=== PATIENT | female | born 1975 | race Caucasian/White ===

== ENCOUNTER → 2016-12-22 | Outpatient (CLI) | payer BC ==
--- NOTE | 2016-12-22 10:11 | US ---
EXAMINATION TYPE: US abdomen complete DATE OF EXAM: 12/22/2016 9:58 AM COMPARISON: NONE CLINICAL HISTORY: R10.31 rlq pain. General rt sided pain EXAM MEASUREMENTS: Liver Length: 14.2 cm Gallbladder Wall: 0.2 cm CBD: 0.4 cm Spleen: 8.5 cm Right Kidney: 10.1 x 4.5 x 4.7cm Left Kidney: 10.0 x 5.0 x 4.2 cm TECHNOLOGIST IMPRESSION: Pancreas: wnl Liver: wnl Gallbladder: wnl Evidence for sonographic Rothman's sign: no CBD: wnl Spleen: wnl Right Kidney: wnl Left Kidney: wnl Upper IVC: wnl Abd Aorta: wnl The liver is homogenous. The intrahepatic portion of the IVC and proximal abdominal aorta are within normal limits. There is no evidence of cholelithiasis. Common bile duct is unremarkable. The visu alized portions of the pancreas are homogenous. The spleen is unremarkable. Kidneys are symmetric a nd free of hydronephrosis. No renal lesions are seen. IMPRESSION: Normal abdominal ultrasound.
--- NOTE | 2016-12-22 15:13 | US ---
EXAMINATION TYPE: US pelvic complete DATE OF EXAM: 12/22/2016 8:52 AM COMPARISON: on pacs CLINICAL HISTORY: RLQ Pain [id number]. Partial hysterectomy on 04/2015 TECHNIQUE: Transabdominal (TA) Date of LMP: Partial hysterectomy EXAM MEASUREMENTS: Uterus: Surgically absent Endometrial Stripe: Surgically absent Right Ovary: 3.4 x 2.1 x 2.3 cm Left Ovary: 4.0 x 3.0 x 4.0 cm TECHNOLOGIST IMPRESSION: 1. Uterus: Surgically absent 2. Endometrium: Surgically absent 3. Right Ovary: wnl 4. Left Ovary: simple cyst= 3.4 x 3.5 x 3.0 cm Spectral, color and waveform doppler imaging shows good arterial and venous flow within the ovaries ; there is no evidence for ovarian torsion. 5. Bilateral Adnexa: Free fluid seen adjacent to bilateral ovaries 6. Posterior cul-de-sac: fluid seen IMPRESSION: 1. Status post partial hysterectomy. 2. Simple appearing 3 cm left ovarian cyst. 3. Small amount of free fluid.
== END | disposition home or self-care (01) ==
LOC: RADUSWWP 07:23
PROVIDERS: ATTEND Psychiatry & Neurology Neurology
DX: N83.202 Unspecified ovarian cyst, left side (principal); R10.31 Right lower quadrant pain; Z90.710 Acquired absence of both cervix and uterus
CPT/HCPCS: 76700; 76856

== ENCOUNTER → 2017-02-05 | Outpatient (CLI) | payer BC ==
[2017-02-05 09:58] LABS: CH 29.8; CHCM 32.6; HCT 38.4 % (34.0-46.0); HDW 2.36; HGB 12.8 gm/dL (11.4-16.0); MCH 30.6 pg (25.0-35.0); MCHC 33.3 g/dL (31.0-37.0); MCV 91.7 fL (80.0-100.0); RBC 4.19 m/uL (3.80-5.40); RDW 11.9 % (11.5-15.5); WBC 4.2 k/uL (3.8-10.6)
[2017-02-05 10:22] LABS: ALT 25 U/L (9-52); AST 16 U/L (14-36); Alkaline Phosphatase 45 U/L (38-126); Anion Gap 9 mmol/L; Blood Urea Nitrogen 17 mg/dL (7-17); C Reactive Protein <5.0 mg/L (<10.0); Calcium 9.8 mg/dL (8.4-10.2); Carbon Dioxide 26 mmol/L (22-30); Chloride 106 mmol/L (98-107); Creatine Kinase 61 U/L (30-135); Glucose 90 mg/dL (74-99); Magnesium 1.9 mg/dL (1.6-2.3); Non-African American GFR(MDRD) >60 (>60 ml/min/1.73 sqM); Potassium 4.8 mmol/L (3.5-5.1); Sodium 141 mmol/L (137-145); Total Bilirubin 0.5 mg/dL (0.2-1.3); Total Protein 6.7 g/dL (6.3-8.2)
[2017-02-05 11:08] LABS: Vitamin B12 486 pg/mL (239-931)
[2017-02-05 11:11] LABS: Erythrocyte Sedimentation Rate 8 mm/hr (0-20)
[2017-02-05 12:56] LABS: Hemoglobin A1C 5.3 % (4.2-6.1)
[2017-02-08 05:50] LABS: Vitamin E (Alpha Tocopherol) 960 ug/dL (500-1800)
[2017-02-08 07:40] LABS: Cyclic Citrullinated Pep IgG 8 UNITS (<20)
[2017-02-11 20:04] LABS: Nicotinamide 20 ng/mL; Nicotinic Acid None Detected; Nicotinuric Acid None Detected
[2017-02-12 22:36] LABS: Vitamin K 283 pg/mL (80-1160)
== END | disposition home or self-care (01) ==
LOC: LABWHC1 08:56
PROVIDERS: ATTEND Psychiatry & Neurology Pain Medicine
DX: G89.4 Chronic pain syndrome (principal); M79.7 Fibromyalgia; Z79.899 Other long term (current) drug therapy
CPT/HCPCS: 36415; 80053; 82306; 82550; 82607; 83036; 83519; 83735; 84207; 84425; 84446; 84590; 84591; 84597; 85027; 85652; 86140; 86200; 86235

== ENCOUNTER → 2017-05-19 | Outpatient (CLI) | payer BC | END | disposition home or self-care (01) | LOC: LABWHC1 10:34 | PROVIDERS: ATTEND Psychiatry & Neurology Neurology | DX: E55.9 Vitamin D deficiency, unspecified (principal) | CPT/HCPCS: 36415; 82306 ==

== ENCOUNTER → 2018-01-18 | Outpatient (CLI) | payer BC ==
[2018-01-18 09:21] LABS: Basophils % (A) 0 %; Eosinophils # (A) 0.1 k/uL (0-0.7); Eosinophils % (A) 2 %; HCT 38.1 % (34.0-46.0); HGB 12.4 gm/dL (11.4-16.0); Lymphocytes # (A) 1.5 k/uL (1.0-4.8); Lymphocytes % (A) 33 %; MCH 28.8 pg (25.0-35.0); MCHC 32.6 g/dL (31.0-37.0); MCV 88.3 fL (80.0-100.0); Mean Platelet Volume 7.6; Monocytes # (A) 0.3 k/uL (0-1.0); Monocytes % (A) 7 %; Neutrophils # (A) 2.6 k/uL (1.3-7.7); Neutrophils % (A) 57 %; Platelet Count 290 k/uL (150-450); RBC 4.31 m/uL (3.80-5.40); RDW 12.4 % (11.5-15.5); WBC 4.6 k/uL (3.8-10.6)
[2018-01-18 17:33] LABS: Iron Saturation 35.98 (12.00-45.00)
== END | disposition home or self-care (01) ==
LOC: LABWHC1 08:21
PROVIDERS: ATTEND Family Medicine
DX: L65.9 Nonscarring hair loss, unspecified (principal); E55.9 Vitamin D deficiency, unspecified
CPT/HCPCS: 36415; 82306; 82728; 83540; 83550; 84443; 84466; 85025

== ENCOUNTER → 2018-10-06 | Outpatient (CLI) | payer BC ==
--- NOTE | 2018-10-06 10:48 | US ---
EXAMINATION TYPE: US abdomen comp/pelvis limited DATE OF EXAM: 10/06/2018 COMPARISON: Ultrasound abdomen December 22, 2016 CLINICAL HISTORY: R10.9 Unspecified abdominal pain. R ight flank pain, dysuria EXAM MEASUREMENTS: Liver Length: 15.9 cm Gallbladder Wall: 0.2 cm CBD: 0.3 cm Spleen: 8.8 cm Right Kidney: 11.0 x 4.9 x 4.7 cm Left Kidney: 10.5 x 5.0 x 4.6 cm Pancreas: visualized portions appear wnl Liver: appears wnl Gallbladder: no evidence of stones CBD: wnl Spleen: wnl Right Kidney: no evidence of hydronephrosis Left Kidney: no evidence of hydronephrosis Upper IVC: wnl Abd Aorta: wnl Bladder: appears wnl Bilateral Jets Seen yes Bladder is poorly distended and thus suboptimally evaluated. Complete abdominal ultrasound shows no suspicious abnormality. No significant change from prior study is noted. IMPRESSION: No suspicious new or acute finding is seen to account for patient's symptoms.
== END ==
LOC: RADUSWWP 08:12
PROVIDERS: ATTEND Family Medicine
DX: R10.9 Unspecified abdominal pain (principal)
CPT/HCPCS: 76700; 76857

== ENCOUNTER 2018-10-16 08:27 | Day surgery (SDC) | payer BC ==
[2018-10-09 16:55] VITALS: BMI 22.8
[~2018-10-16 08:27] MED LIST: DEXAMETHASONE SOD PHOSPHATE 10 MG/ML 1 ML VIAL IV ONE; HYDROmorphone 0.5 MG/0.5 ML SYRINGE IVP PRN; LACTATED RINGERS 1,000 ML IV SCH; LIDOCAINE 1% 20 ML VIAL (10MG/ML) FOR IV START INTRADERMA PRN; ONDANSETRON 4 MG/2 ML VIAL IVP ONE; SCOPOLAMINE 1.5MG/72HR PATCH TRANSDERM ONE
[2018-10-16] MEDS ORDERED: MIDAZOLAM 2 MG/2 ML VIAL IVP ONE (08:50)
[2018-10-16] MEDS ORDERED: fentaNYL (PF) 50 MCG/ML 2 ML AMP IVP ONE (08:51)
[2018-10-16] MEDS ORDERED: PROPOFOL 10 MG/ML 20 ML VIAL IV ONE (08:57)
[2018-10-16] MEDS ORDERED: LIDOCAINE 1% INJ 10MG/ML (20 ML MDV) ONE (08:57)
[2018-10-16 08:59] VITALS: RESP 16; TEMP 98.6
--- NOTE | 2018-10-16 09:27 | P.PCN ---
Date of Procedure: 10/16/18 Procedure(s) Performed: Procedure: Colonoscopy and biopsy. Preoperative diagnosis: Alternating bowel habits and recent rectal bleeding. Postoperative diagnosis: 1. Prominent anal papillae and low-grade internal hemorrhoids not bleeding at the time of the exam, otherwise, exam to the terminal ileum within normal limits. 2. Biopsies obtained from the terminal ileum and right colon because of the chronic bowel issues. Preparation: HalfLytely prep. Sedation: Was provided by anesthesia. Brief clinical history: The patient is a 43-year-old female who is referred for this evaluation because of recent episode of rectal bleeding. The patient reports alternating bowel habits over the years with days of diarrhea followed by days of no bowel movements and straining to pass a small amount of stools only. She does have lower abdominal pains that could be neuropathic in origin secondary to nerve trapping following a prior surgery. No family history of colon cancer or inflammatory bowel disease. Procedure: With the patient on her left lateral decubitus position and after informed consent and adequate sedation, the perianal area was inspected and it did not show any fissures or fistulas. There was some skin redundancy and skin relaxation but no definite skin tags. No masses were felt on digital rectal examination. The Olympus CFQ 160L video colonoscope was then inserted in the rectum in the usual fashion and advanced to the cecum. I intubated the ileocecal valve and examined the terminal ileum. Terminal ileum and colon appeared healthy with no edema, erythema, friability, ulceration, exudation or spontaneous bleeding. No polyps or tumors were seen or any obvious diverticular disease. I retroflexed the endoscope in the rectum before the endoscope was withdrawn. Prominent anal papillae and low-grade internal hemorrhoids were noted with no evidence of bleeding. The patient tolerated the procedure well. Plan: The patient was reassured. Discussed dietary measures and local care for hemorrhoids. She will follow-up with you as planned and I recommended repeat colonoscopy at age 52. Further plans can be made based on her course and biopsy results. I would be happy to see in the office if her symptoms persist.
[2018-10-16 09:41] VITALS: BP 117/75; PULSE 84
--- NOTE | 2018-10-18 12:35 | CDI ---
Outpatient Documentation Clarification Form Date: 10/18/19 CDS/[employer] Name: Nyla Case Phone: If any questions, call Virginie [facility] [employer] at [phone] Patient Name: Josi Turner Admit Date: 10/16/18 Discharge Date: 10/16/18 ATTENTION: The [facility] Coding Staff appreciate your assistance in clarifying documentation. Please respond to the clarification below the line at the bottom and electronically sign. The [facility] Coding staff will review the response and follow-up if needed. Please note: Queries are made part of the Legal Health Record. If you have any questions, please contact the [employer] [facility]. Dear Dr. Rodriguez, What is the cause of the rectal bleeding? Our coding resources state that when rectal bleeding is documented along with internal and/or external hemorrhoids, the physician must be queried to determine whether the rectal bleeding is secondary to the hemorrhoids, or incidental. Thank you for your kind consideration. Since no active bleeding during procedure, I cannot determine source. I would have said it if I knew it. Do not ask question about cause on future cases. JUANYD
== END 2018-10-16 10:14 | disposition home or self-care (01) ==
LOC: ORWHC2ENDO 08:27
DX: K64.8 Other hemorrhoids (principal); K64.4 Residual hemorrhoidal skin tags; G57.10 Meralgia paresthetica, unspecified lower limb; R19.7 Diarrhea, unspecified; K59.00 Constipation, unspecified; R10.30 Lower abdominal pain, unspecified; Z79.899 Other long term (current) drug therapy
CPT/HCPCS: 88305; 45380; J2250; J2001; J3010; J2704

== ENCOUNTER → 2018-11-10 | Outpatient (CLI) | payer BC ==
--- NOTE | 2018-11-12 10:40 | MR ---
EXAMINATION TYPE: MR ankle LT wo con DATE OF EXAM: 11/10/2018 COMPARISON: None HISTORY: left ankle sprain, pain, swelling, limited movement. Fibular fracture, talar fracture, ankle sprain and ankle pain for order. She describes symptoms length of 3 weeks after tripping over a curb . TECHNIQUE: Standard multiplanar, multisequence MRI imaging was performed of the left ankle without in travenous contrast per department protocol. FINDINGS: The anterior and posterior tibiofibular ligaments appear intact. However there is a near complete tea r of the anterior talofibular ligament with surrounding lateral fluid collection measuring 2.1 x 2.9 cm. Only few inferior fibers of this ligament remain and are of abnormal high signal. There is a part ial thickness intermediate grade tear of the posterior talofibular ligament. The deltoid ligament tashia ears intact with minimally increased signal indicative of low-grade sprain. The spring ligament appea rs unremarkable. There is a focal osseous contusion of the medial aspect of the anterior talar facet with no evidence of fracture. The adjacent sinus tarsus is unremarkable. Boehler's angle is within normal limits. No f racture is identified on MRI. The extensor compartment ligaments appear intact. There is a long segment split tear of the peroneus brevis beginning just below the fibula on axial T2 fat sat image 15 and extending along segment approximately 3 cm near the insertion on the base of th e fifth metatarsal. The Achilles tendon and plantar fascia are unremarkable. The flexor compartment tendons appear intact and of unremarkable signal. There is nonspecific subcutaneous edema overall mild in degree surrounding the entirety of the ankle joint and extending into the dorsal hindfoot. There is a small uncomplicated tibiotalar joint effusion. IMPRESSION: 1. Near full-thickness tear of the anterior talofibular ligament with associated uncomplicated fluid collection extending from the tibiotalar joint injuring 2.1 x 2.9 cm overlying the anterior distal fi bular margin and extending anteriorly over the tibiotalar joint. There is associated small tibiotalar joint effusion. This also appears uncomplicated. 2. Long segment split tear of the peroneus brevis beginning just below the ankle joint and extending near the base of the fifth metatarsal. 3. Osseous contusion of the anterior and plantar aspect of the anterior talar facet. 4. Partial thickness intermediate grade tear of the posterior talofibular ligament. 5. Low-grade sprain of the glenoid ligament.
== END ==
LOC: RADMRIMAIN 13:37
PROVIDERS: ATTEND Podiatrist Primary Podiatric Medicine
DX: S93.432A Sprain of tibiofibular ligament of left ankle, initial encounter (principal); S91.012A Laceration without foreign body, left ankle, initial encounter; S90.02XA Contusion of left ankle, initial encounter; S93.492A Sprain of other ligament of left ankle, initial encounter

== ENCOUNTER → 2018-12-15 | Outpatient (CLI) | payer BC | END | disposition home or self-care (01) | LOC: LABWHC1 08:25 | PROVIDERS: ATTEND Psychiatry & Neurology Pain Medicine | DX: Z01.818 Encounter for other preprocedural examination (principal) | CPT/HCPCS: 36415; 93005 ==

== ENCOUNTER → 2019-05-11 | Outpatient (CLI) | payer BC ==
--- NOTE | 2019-05-15 10:10 | MM ---
Reason for exam: screening (asymptomatic). Last mammogram was performed 1 year and 6 months ago. History: Family history of breast cancer in grandmother. Physical Findings: A clinical breast exam by your physician is recommended on an annual basis and results should be correlated with mammographic findings. MG 3D Screening Mammo W/Cad Bilateral CC and MLO view(s) were taken. Prior study comparison: November 04, 2017, bilateral MG 3d screening mammo w/cad. The breast tissue is heterogeneously dense. This may lower the sensitivity of mammography. There is a stable oval, circumscribed, probable hematoma on the right in comparison to 2017. Benign stable left calcifications. No suspicious abnormality. No significant changes when compared with prior studies. ASSESSMENT: Benign, BI-RAD 2 RECOMMENDATION: Routine screening mammogram of both breasts in 1 year.
== END | disposition home or self-care (01) ==
LOC: RADMAMWWP 07:23
PROVIDERS: ATTEND Obstetrics & Gynecology
DX: Z12.31 Encounter for screening mammogram for malignant neoplasm of breast (principal); Z80.3 Family history of malignant neoplasm of breast
CPT/HCPCS: 77063; 77067

== ENCOUNTER → 2019-07-25 | Outpatient (CLI) | payer BC | END | disposition home or self-care (01) | LOC: LABWHC1 08:58 | PROVIDERS: ATTEND Psychiatry & Neurology Pain Medicine | DX: Z01.818 Encounter for other preprocedural examination (principal) | CPT/HCPCS: 93005 ==

== ENCOUNTER → 2020-01-31 | Outpatient (CLI) | payer BC ==
--- NOTE | 2020-01-31 13:36 | MM ---
Reason for exam: additional evaluation requested from prior study. Last mammogram was performed 9 months ago. History: Family history of breast cancer in maternal grandmother at age 65. Physical Findings: Nurse Summary: 4 xcm nodule in the right breast at 6 o'clock (nurse ts). MG 3D Diag Mammo W/Cad JOSH Bilateral CC and MLO view(s) were taken. Prior study comparison: May 11, 2019, bilateral MG 3d screening mammo w/cad. November 04, 2017, bilateral MG 3d screening mammo w/cad. The breast tissue is heterogeneously dense. This may lower the sensitivity of mammography. There is a lower outer quadrant 2.5cm mass at posterior depth that appears stable on mammogra. Fat containing hamartoma previously typed as hematoma (error). These results were verbally communicated with the patient and result sheet given to the patient on 01/31/20. ASSESSMENT: Incomplete: need additional imaging evaluation, BI-RAD 0 RECOMMENDATION: Ultrasound of the right breast. (palpable)
--- NOTE | 2020-01-31 13:39 | USB ---
Reason for exam: additional evaluation requested from abnormal screening. History: Family history of breast cancer in maternal grandmother at age 65. US Breast RT Technologist: Kerri Harris Right complete breast ultrasound includes all four quadrants, the retroareolar region and axilla. Finding demonstrates a 2.4 x 2.7 x 2.4cm lesion at 7 o'clock does not correspond to stable mammographic hamartoma from 2017, appears solid and lobular with peripheral vascular flow, biopsy recommended and a 1.1 x 0.7 x 0.5cm lesion at 7 o'clock, appears as a nonenlarged lymph node. These results were verbally communicated with the patient and result sheet given to the patient on 01/31/20. ASSESSMENT: Suspicious, BI-RAD 4 RECOMMENDATION: Ultrasound core biopsy of the right breast. Called Dr. Mccarty's office with mammographic findings and has scheduled an appointment for the patient for 03/06/20 at 10:[address] Ferreira. Biopsy scheduled for 02/29/20 at 11:30. PRELIMINARY REPORT CALLED AND FAXED TO DR. FERREIRA ON 01/31/20.
== END | disposition home or self-care (01) ==
LOC: RADMAMWWP 09:32
PROVIDERS: ATTEND Obstetrics & Gynecology
DX: N63.10 Unspecified lump in the right breast, unspecified quadrant (principal); N63.20 Unspecified lump in the left breast, unspecified quadrant; N64.4 Mastodynia
CPT/HCPCS: 77062; 77066

== ENCOUNTER → 2020-02-26 | Day surgery (SDC) | payer BC ==
[2020-02-26 10:31] VITALS: RESP 16
[2020-02-26 12:12] VITALS: BP 116/77; PULSE 73; TEMP 98.3
--- NOTE | 2020-02-27 06:37 | USB ---
EXAMINATION TYPE: US biopsy breast VAD RT, MG diagnostic mammo RT wo CAD DATE OF EXAM: 02/26/2020 CLINICAL HISTORY: Breast lump [id number]. TECHNIQUE: Ultrasound guided core biopsy of right breast. COMPARISON: Right breast ultrasound dated 01/31/2020 FINDINGS: The procedure of ultrasound guided core biopsy was explained to the patient. Benefits, alternatives, and risks were discussed. An informed consent was then obtained. Procedural timeout was performed. The patient was placed in supine positioning for imaging and for the procedure. The overlying skin was prepped and draped in usual sterile fashion. 10 cc of 1% lidocaine was used as anesthetic into the skin and subcutaneous tissue up to a palpable 2.7 cm mass at the 7:00 position in the right breast. Under ultrasound guidance, a 12-gauge vacuum assisted biopsy gun device was used to obtain 6 core samples. Following this, a wing shaped biopsy marker was left in the mass. The patient tolerated the procedure well without any immediate complication. The patient was kept in the radiology department for short stay after the procedure and then discharged home in stable condition. Postprocedure mammogram demonstrates appropriate biopsy marker placement. IMPRESSION: Successful, uncomplicated ultrasound guided core biopsy of a palpable 2.7 cm mass at the 7:00 position in the right breast, full pathology results to follow. Pathology Results: Malignant RIGHT BREAST, 7:00, ULTRASOUND GUIDED CORE BIOPSY: Invasive poorly differentiated ductal carcinoma (Grade 3). See Surgical Pathology Cancer Case Summary. Recommendation Surgical consult of the right breast. JUANYD
== END | disposition home or self-care (01) ==
LOC: RADUSWWP 09:42
PROVIDERS: ATTEND Surgery
DX: C50.911 Malignant neoplasm of unspecified site of right female breast (principal); Z17.1 Estrogen receptor negative status [ER-]
CPT/HCPCS: 88305; 88342; 88341; 77065; 19083; A4648; J2001

== ENCOUNTER → 2020-03-07 | Outpatient (CLI) | payer BC | END | disposition home or self-care (01) | LOC: RADMRIMAIN 10:12 | PROVIDERS: ATTEND Surgery | DX: Z53.9 Procedure and treatment not carried out, unspecified reason (principal) ==

== ENCOUNTER → 2020-03-14 | Outpatient (CLI) | payer BC | END | disposition home or self-care (01) | LOC: RADECHMAIN 07:30 | PROVIDERS: ATTEND Internal Medicine Hematology & Oncology | DX: Z53.9 Procedure and treatment not carried out, unspecified reason (principal) ==

== ENCOUNTER → 2020-03-14 | Day surgery (SDC) | payer BC ==
[2020-03-13 13:27] VITALS: BMI 21.9
[~2020-03-14] MED LIST changes: +HEPARIN SODIUM,PORCINE 5,000 UNIT/ML 1 ML VIAL SQ ONE; +LACTATED RINGERS 1,000 ML IV ONE; +LIDOCAINE 1% (10MG/ML) FOR IV START INTRADERMA PRN; -LIDOCAINE 1% 20 ML VIAL (10MG/ML) FOR IV START INTRADERMA PRN; +LIDOCAINE 1% INJ 10MG/ML (20 ML MDV) ONE; +LIDOCAINE 1% INJ 10MG/ML (20 ML MDV) SQ ONE; +MIDAZOLAM 2 MG/2 ML VIAL ONE; +NALOXONE 0.4 MG/ML 1 ML VIAL IV PRN; +PROPOFOL 10 MG/ML 50 ML VIAL IV ONE; +Pre Op ABX Message 1 EACH MISC MISCELLANE ONE; -SCOPOLAMINE 1.5MG/72HR PATCH TRANSDERM ONE; +fentaNYL (PF) 50 MCG/ML 2 ML AMP ONE
--- NOTE | 2020-03-14 08:57 | P.GSHP ---
History of Present Illness H&P Date: 03/14/20 Chief Complaint: Right breast cancer 44-year-old female recently diagnosed with right breast cancer after failing a painful mass right breast. Further workup for metastasis negative thus far. Patient to begin neoadjuvant therapy. She did have a small 5 mm lesion left breast that was percutaneously biopsied yesterday. Those results are pending. No history of central venous access. 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 History of Any Multi-Drug Resistant Organisms: None Reported Past Surgical History: Breast Surgery, Section, Hysterectomy, Orthopedic Surgery Additional Past Surgical History / Comment(s): ABD NERVE DIVISION ATTEMPT. 2019 foot surgery, LEFT ANKLE SURGERY (2019)RIGHT BREAST BX, LEFT BREAST BX (03/13/20 @ [facility]) Past Anesthesia/Blood Transfusion Reactions: No Reported Reaction Past Psychological History: Anxiety Additional Psychological History / Comment(s): CURRENT ANXIETY WITH DIAGNOSIS OF CANCER Smoking Status: Former smoker Past Alcohol Use History: Occasional Additional Past Alcohol Use History / Comment(s): SMOKED 2 YEARS, QUIT 2002 Past Drug Use History: None Reported - Past Family History Mother Family Medical History: No Reported History Medications and Allergies Home Medications Medication Instructions Recorded Confirmed Type Gabapentin 200 mg PO TID 10/09/18 03/13/20 History ALPRAZolam [Xanax] 0.25 mg PO DAILY PRN 03/13/20 03/13/20 History traMADol HCL [Ultram] 50 mg PO DIRECTED PRN 03/13/20 03/13/20 History Allergies Allergy/AdvReac Type Severity Reaction Status Date / Time No Known Allergies Allergy Verified 03/13/20 13:02 Surgical - Exam Vital Signs Temp Pulse Resp BP Pulse Ox 98.1 F 94 18 125/78 99 03/14/20 07:45 03/14/20 07:45 03/14/20 07:45 03/14/20 07:45 03/14/20 07:45 Physical exam: General: Well-developed, well-nourished HEENT: Normocephalic, sclerae nonicteric Abdomen: Nontender, nondistended Extremities: No edema Neuro: Alert and oriented Assessment and Plan (1) Breast cancer, right Narrative/Plan: Will proceed with Port-A-Cath placement at this time. Risks of bleeding, infection, DVT, pneumothorax, catheter malfunction, anesthesia related complications were discussed. The patient understands and wishes to proceed. Current Visit: Yes Status: Acute Code(s): C50.911 - MALIGNANT NEOPLASM OF UNSP SITE OF RIGHT FEMALE BREAST SNOMED Code(s): 126665066
[2020-03-14 10:24] VITALS: TEMP 97.7
--- NOTE | 2020-03-14 10:26 | P.OP ---
Date of Procedure: 03/14/20 Procedure(s) Performed: PREOPERATIVE DIAGNOSIS: Right breast cancer POSTOPERATIVE DIAGNOSIS: Same PROCEDURE: Port-A-Cath placement SURGEON: Sandy EBL: Minimal ANESTHESIA: Sedation COMPLICATIONS: None OPERATIVE PROCEDURE: Patient was brought and placed on the operative table in the supine position. The patient was sedated per anesthesia that time. The chest and neck were prepped and draped in usual sterile fashion. The ultrasound probe was used to identify the location of the left internal jugular vein. The skin was localized with lidocaine. The Seldinger needle was advanced into the IJ under ultrasound guidance. The wire was advanced through the needle under fluoroscopic guidance into the superior vena cava. A port pocket was created in the left infraclavicular location. The catheter was tunneled from the wire entrance site to the port pocket. The port was then connected to the catheter. The dilator introducer was threaded over the guidewire. The guidewire and dilator were then removed. The catheter was advanced through the introducer and introducer was then removed. The tip was seen to be in the right atrial junction. Port was flushed with both saline and a Hep-Lock solution. There was good flow both in and out of the port. The port was sutured in underlying tissues using 3-0 silk sutures. The subcutaneous tissues were reapproximated using 3-0 Vicryl sutures and the skin at both locations using 4-0 Monocryl sutures. Skin glue and sterile dressings then applied. DISPOSITION: Stable to recovery room
[2020-03-14 10:47] VITALS: RESP 17
--- NOTE | 2020-03-14 10:47 | XR ---
EXAMINATION TYPE: XR chest 1V confirm line [facility] DATE OF EXAM: 03/14/2020 COMPARISON: NONE HISTORY: 44-year-old female status post line placement, history of right breast cancer TECHNIQUE: Single frontal view of the chest is obtained. FINDINGS: Left anterior chest wall injection port with catheter tip at the lower SVC level. Heart normal size. Aorta and pulmonary vasculature within normal limits. No consolidation or pleural effusion. IMPRESSION: Left anterior chest wall injection port with catheter tip at the lower SVC level. No acute process se en.
[2020-03-14 10:55] VITALS: BP 122/76; PULSE 72
--- NOTE | 2020-03-14 11:03 | FL ---
Fluoroscopy HISTORY: portacath placement 21 seconds fluoroscopy time supplied to the referring clinician. 1 intraoperative C-arm images docum ent the procedure. See dictated report from general surgery.
--- NOTE | 2020-03-14 17:37 | ECHOF ---
Referral Reason:C50.511 Breast cancer MEASUREMENTS -------- HEIGHT: 0.0 cm WEIGHT: 0.0 kg BP: RVIDd: 3.2 cm (< 3.3) IVSd: 0.8 cm (0.6 - 1.1) LVIDd: 3.4 cm (3.9 - 5.3) LVPWd: 1.0 cm (0.6 - 1.1) IVSs: 1.1 cm LVIDs: 2.6 cm LVPWs: 1.5 cm LA Diam: 2.6 cm (2.7 - 3.8) Ao Diam: 2.8 cm (2.0 - 3.7) AV Cusp: 2.1 cm (1.5 - 2.6) MV EXCURSION: 20.824 mm (> 18.000) MV EF SLOPE: 119 mm/s (70 - 150) EPSS: 0.6 cm MV E Matt: 0.78 m/s MV DecT: 194 ms MV A Matt: 0.76 m/s MV E/A Ratio: 1.02 RAP: 5.00 mmHg RVSP: 21.56 mmHg TAPSE: 20.17 mm FINDINGS -------- Sinus rhythm. This was a technically good study. The left ventricular size is normal. Left ventricular wall thickness is normal. Overall left vent ricular systolic function is normal with, an EF between 55 - 60 %. The right ventricle is normal in size. The left atrium is normal in size. The right atrium is normal in size. Interatrial and interventricular septum intact. The aortic valve is trileaflet and appears structurally normal. The mitral valve is normal. Mild tricuspid regurgitation present. Right ventricular systolic pressure is normal at < 35 mmHg. Trace/mild (physiologic) pulmonic regurgitation. The aortic root size is normal. Normal inferior vena cava with normal inspiratory collapse consistent with estimated right atrial pre ssure of 5 mmHg. There is no pericardial effusion. CONCLUSIONS -------- 1. Sinus rhythm. 2. This was a technically good study. 3. The left ventricular size is normal. 4. Left ventricular wall thickness is normal. 5. Overall left ventricular systolic function is normal with, an EF between 55 - 60 %. 6. The right ventricle is normal in size. 7. The left atrium is normal in size. 8. The right atrium is normal in size. 9. Interatrial and interventricular septum intact. 10. The aortic valve is trileaflet and appears structurally normal. 11. The mitral valve is normal. 12. Mild tricuspid regurgitation present. 13. Right ventricular systolic pressure is normal at < 35 mmHg. 14. Trace/mild (physiologic) pulmonic regurgitation. 15. The aortic root size is normal. 16. Normal inferior vena cava with normal inspiratory collapse consistent with estimated right atrial pressure of 5 mmHg. 17. There is no pericardial effusion. BECK OPERATOR: Cynthia Headley RDCS
== END ==
LOC: OR 07:32
PROVIDERS: ATTEND Surgery
DX: C50.911 Malignant neoplasm of unspecified site of right female breast (principal); F41.9 Anxiety disorder, unspecified; G90.50 Complex regional pain syndrome I, unspecified; Z80.3 Family history of malignant neoplasm of breast; Z90.710 Acquired absence of both cervix and uterus; Z87.891 Personal history of nicotine dependence; Z79.899 Other long term (current) drug therapy; Z98.890 Other specified postprocedural states
CPT/HCPCS: 93306; 77001; 36561; J2250; J1644; J1100; J0690; J2405; J2001; J3010; J1642; J2704

== ENCOUNTER → 2020-06-17 | Outpatient (CLI) | payer BC ==
--- NOTE | 2020-06-18 09:45 | ECHOF ---
Referral Reason:Z01.818 Chemo exposer MEASUREMENTS -------- HEIGHT: 175.3 cm WEIGHT: 68.0 kg BP: RVIDd: 2.8 cm (< 3.3) IVSd: 0.8 cm (0.6 - 1.1) LVIDd: 5.0 cm (3.9 - 5.3) LVPWd: 0.8 cm (0.6 - 1.1) IVSs: 0.8 cm LVIDs: 3.7 cm LVPWs: 1.1 cm LA Diam: 3.2 cm (2.7 - 3.8) LAESV Index (A-L): 24.18 ml/m Ao Diam: 2.9 cm (2.0 - 3.7) AV Cusp: 2.2 cm (1.5 - 2.6) LA Diam: 3.6 cm (2.7 - 3.8) MV EXCURSION: 15.184 mm (> 18.000) MV EF SLOPE: 78 mm/s (70 - 150) EPSS: 0.5 cm MV E Matt: 0.85 m/s MV DecT: 229 ms MV A Matt: 0.70 m/s MV E/A Ratio: 1.22 RAP: 5.00 mmHg RVSP: 22.41 mmHg FINDINGS -------- Sinus rhythm. This was a technically good study. LV size, wall thickness and systolic function are normal, with an EF greater than 55%. The left cecil tricular size is normal. The right ventricle is normal in size. The left atrial size is normal. Normal LA size by volume 22+/-6 ml/m2. The right atrial size is normal. Interatrial and interventricular septum intact. The aortic valve is trileaflet, and appears structurally normal. No aortic stenosis or regurgitation. There is trace to mild mitral regurgitation. Mild tricuspid regurgitation present. Right ventricular systolic pressure is normal at < 35 mmHg. There is no pulmonic regurgitation present. The aortic root size is normal. There is no pericardial effusion. CONCLUSIONS -------- 1. Sinus rhythm. 2. This was a technically good study. 3. LV size, wall thickness and systolic function are normal, with an EF greater than 55%. 4. The left ventricular size is normal. 5. The right ventricle is normal in size. 6. The left atrial size is normal. 7. Normal LA size by volume 22+/-6 ml/m2. 8. The right atrial size is normal. 9. There is trace to mild mitral regurgitation. 10. Mild tricuspid regurgitation present. 11. Right ventricular systolic pressure is normal at < 35 mmHg. 12. There is no pulmonic regurgitation present. SECRET SERVICE AGENT: Nati Ziegler RDCS
== END | disposition home or self-care (01) ==
LOC: RADECHMAIN 12:02
PROVIDERS: ATTEND Internal Medicine Hematology & Oncology
DX: I07.1 Rheumatic tricuspid insufficiency (principal)
CPT/HCPCS: 93306

== ENCOUNTER → 2020-12-10 | Outpatient (CLI) | payer BC ==
--- NOTE | 2020-12-11 03:08 | MR ---
EXAMINATION TYPE: MR brain wo/w con DATE OF EXAM: 12/10/2020 COMPARISON: None HISTORY: Headaches, hx breast cancer CONTRAST: Standard multiplanar, multisequence MRI departmental protocol utilizing 7 mL intravenous Gadavist cesar olinium contrast. Ventricles have normal size. There is no mass effect nor midline shift. There is no sign of intracran ial hemorrhage. Diffusion images show no evidence of cortical infarct. Brainstem is intact. The medrano-white matter structures have fairly normal signal pattern. There is no evidence of cerebral edema. The corpus callosum appears normal. Brainstem has normal signal pattern. Sella turcica appears normal. There is normal contrast enhancement of the venous sinuses. There is no pathologic enhancement. IMPRESSION: Normal MR scan of the brain. No evidence of metastatic disease.
== END | disposition home or self-care (01) ==
LOC: RADMRIMAIN 17:03
PROVIDERS: ATTEND Internal Medicine Hematology & Oncology
DX: R51.9 Headache, unspecified (principal); C50.511 Malignant neoplasm of lower-outer quadrant of right female breast
CPT/HCPCS: 70553; A9585

== ENCOUNTER → 2021-07-03 | Outpatient (CLI) | payer BC ==
--- NOTE | 2021-07-03 16:11 | NM ---
EXAMINATION TYPE: NM bone scan whole body DATE OF EXAM: 07/03/2021 COMPARISON: NONE HISTORY: Malignant neoplasm lower outer quadrant breast diagnosed March 06, 2020 with lumbar and sacr al pain for 1.5 months Delayed whole-body scanning was performed following the injection of 22.5 mCi Tc 99m MDP. Images acq uired 3 hours post injection. FINDINGS: No abnormal increased radiotracer uptake to suggest metastatic disease to the bone or other suspiciou s abnormality. Normal excretion is identified. IMPRESSION: No scintigraphic evidence of metastatic disease to bone.
== END | disposition home or self-care (01) ==
LOC: RADNMMAIN 11:18
PROVIDERS: ATTEND Internal Medicine Hematology & Oncology
DX: Z03.89 Encounter for observation for other suspected diseases and conditions ruled out (principal); C50.511 Malignant neoplasm of lower-outer quadrant of right female breast
CPT/HCPCS: 78306; A9503

== ENCOUNTER → 2021-09-08 | Outpatient (CLI) | payer BC ==
--- NOTE | 2021-09-08 13:05 | XR ---
EXAMINATION TYPE: XR chest 2V DATE OF EXAM: 09/08/2021 COMPARISON: Chest x-ray 03/14/2020 HISTORY: Back pain, Dorsalgia lumbago TECHNIQUE: Frontal and lateral views of the chest are obtained. FINDINGS: There is no focal air space opacity, pleural effusion, or pneumothorax seen. The cardiac silhouette size is within normal limits. Port-A-Cath has been removed in the interval. Patient is sli ghtly rotated. Bilateral breast prostheses are noted. There are postop changes. The osseous structur es are intact, thoracic spondylosis is noted. IMPRESSION: No acute cardiopulmonary process. Thoracic spondylosis.
--- NOTE | 2021-09-08 13:09 | XR ---
Lumbar spine HISTORY: Dorsalgia lumbago 3 views of the lumbar spine Lumbar vertebral bodies show preserved height and bone mineralization. There is a gentle spinal curva ture. Sclerosis is present in the posterior elements of the lower lumbar spine. Some loss of disc hei ght is present at L5-S1, L3-4. There is mild multilevel spondylosis noted within the visualized spine . IMPRESSION: Degenerative disc disease, facet arthropathy, consider lumbar MRI as indicated.
== END | disposition home or self-care (01) ==
LOC: RADXRMAIN 10:34
PROVIDERS: ATTEND Family Medicine
DX: M47.814 Spondylosis without myelopathy or radiculopathy, thoracic region (principal); M51.36 Other intervertebral disc degeneration, lumbar region; M46.96 Unspecified inflammatory spondylopathy, lumbar region
CPT/HCPCS: 71046; 72100

== ENCOUNTER → 2021-09-23 | Outpatient (CLI) | payer BC ==
--- NOTE | 2021-09-24 03:07 | MR ---
EXAMINATION TYPE: MR lumbar spine wo/w con DATE OF EXAM: 09/23/2021 COMPARISON: None HISTORY: Low back pain for that goes into right buttock. History of breast cancer. CONTRAST: Standard multiplanar, multisequence MRI departmental protocol utilizing 7 mL intravenous Gadavist cesar olinium contrast. Multiplanar multiecho imaging of the lumbar spine without and with IV contrast gadolinium 7 mL. Lumbar vertebra have normal alignment. Disc spaces are fairly normal. There is a small posterior disc herniation at L5-S1. There is developmentally adequate spinal canal. There is a mild posterior disc bulge at L1-2. There is no spinal stenosis. The neural foramina are widely patent. Lumbar nerve roots appear normal. There is no evidence of focal bone destruction. There is no lumbar paraspinal mass. Sacroiliac joints are intact. There is no pathologic enhancement. IMPRESSION: Small posterior concentric disc bulge at L5-S1. No spinal stenosis. No fracture. No evidence of metastatic disease.
== END | disposition home or self-care (01) ==
LOC: RADMRIMAIN 18:31
PROVIDERS: ATTEND Internal Medicine Hematology & Oncology
DX: C50.511 Malignant neoplasm of lower-outer quadrant of right female breast (principal); M51.86 Other intervertebral disc disorders, lumbar region
CPT/HCPCS: 72158; A9585

== ENCOUNTER → 2023-03-08 | Outpatient (CLI) | payer BC ==
--- NOTE | 2023-03-08 11:41 | MR ---
EXAMINATION TYPE: MR cspine/tspine wo/w con DATE OF EXAM: 03/08/2023 COMPARISON: NONE HISTORY: Neck and mid back pain into luis antonio upper extremities, hx of breast ca TECHNIQUE: Multiplanar, multisequence imaging of cervical and thoracic spine are performed without an d with IV contrast, patient given 8.5 cc of Gadavist for study. FINDINGS: C-SPINE: FINDINGS: Sagittal images of the cervical spine show the craniocervical junction to appear within nor mal limits. The cervical and upper thoracic spinal cord is normal in course, caliber, and signal. V ertebral alignment is anatomic. The vertebral body and intravertebral disk heights are normal. The bone marrow signal intensity is within normal limits. No abnormal postcontrast enhancement is seen. Axial images show there is no significant focal disk disease, spinal canal stenosis, neural foraminal narrowing, or spinal cord compromise at any cervical level. IMPRESSION: Negative MRI of the cervical spine, no significant abnormality is seen to account for debbie costa's clinical symptoms. T-SPINE: Coronal images show slight dextroconvex scoliosis centered in the midthoracic spine. Spinal cord grant ws normal caliber and signal as it courses the thoracic spine. Vertebral body heights are satisfacto ry. Small osseous hemangioma involving anterior T2 vertebra sagittal image 9. No abnormal postcontra st enhancement is seen. Review of the axial images shows no significant disc herniation , spinal canal stenosis, or neural f oraminal narrowing at any thoracic level. No abnormal enhancement is seen. IMPRESSION: No significant abnormality is seen to account for patient's symptoms.
== END | disposition home or self-care (01) ==
LOC: RADMRIMAIN 09:18
PROVIDERS: ATTEND Internal Medicine Hematology & Oncology
DX: C50.511 Malignant neoplasm of lower-outer quadrant of right female breast (principal)
CPT/HCPCS: 72156; 72157; A9585

== ENCOUNTER 2025-02-28 12:35 | Day surgery (SDC) | payer BC ==
[2025-02-27 10:59] VITALS: BMI 25.1
[~2025-02-28 12:35] MED LIST changes: -DEXAMETHASONE SOD PHOSPHATE 10 MG/ML 1 ML VIAL IV ONE; -HEPARIN SODIUM,PORCINE 5,000 UNIT/ML 1 ML VIAL SQ ONE; -HYDROmorphone 0.5 MG/0.5 ML SYRINGE IVP PRN; -LACTATED RINGERS 1,000 ML IV ONE; -LIDOCAINE 1% INJ 10MG/ML (20 ML MDV) ONE; -LIDOCAINE 1% INJ 10MG/ML (20 ML MDV) SQ ONE; -MIDAZOLAM 2 MG/2 ML VIAL ONE; -NALOXONE 0.4 MG/ML 1 ML VIAL IV PRN; -ONDANSETRON 4 MG/2 ML VIAL IVP ONE; -PROPOFOL 10 MG/ML 50 ML VIAL IV ONE; -Pre Op ABX Message 1 EACH MISC MISCELLANE ONE; -fentaNYL (PF) 50 MCG/ML 2 ML AMP ONE
[2025-02-28] MEDS: IV FLUID CONTINUATION 1,000 ML IV ONE (13:02)
[2025-02-28 13:07] VITALS: TEMP 98.7
[2025-02-28] MEDS: LACTATED RINGERS 1,000 ML IV SCH (13:10)
[2025-02-28] MEDS ORDERED: PROPOFOL 10 MG/ML 20 ML VIAL IV ONE (13:41)
--- NOTE | 2025-02-28 13:51 | P.GSHP ---
History of Present Illness H&P Date: 02/28/25 Chief Complaint: Colon cancer screening 49-year-old female here for colonoscopy. She has not had one for many years. No new bowel related complaints. Says she has been constipated for 20+ years. Prior history of breast cancer. Denies rectal bleeding or melena. Genetic testing on her was normal. No family history of colon cancer. 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 RLS History of Any Multi-Drug Resistant Organisms: None Reported Past Surgical History: Breast Surgery, Section, Hysterectomy, Orthopedic Surgery Additional Past Surgical History / Comment(s): ABD NERVE DIVISION ATTEMPT. 2019 foot surgery, LEFT ANKLE SURGERY (2019)RIGHT BREAST BX, LEFT BREAST BX (03/13/20 @ [facility]) COLONOSCOPY Past Anesthesia/Blood Transfusion Reactions: No Reported Reaction Smoking Status: Former smoker - Past Family History Mother Family Medical History: No Reported History Medications and Allergies Home Medications Medication Instructions Recorded Confirmed Type traMADol HCL [Ultram] 50 mg PO DIRECTED PRN 03/13/20 02/27/25 History Pramipexole [Mirapex] 0.125 mg PO HS PRN 02/27/25 02/27/25 History Pregabalin [Lyrica] 100 mg PO BID 02/27/25 02/27/25 History Venlafaxine HCl [Effexor XR] 75 mg PO DAILY 02/27/25 02/27/25 History Venlafaxine HCl [Effexor XR] 150 mg PO DAILY 02/27/25 02/27/25 History buPROPion HCL [buPROPion HCL SR] 150 mg PO DAILY 02/27/25 02/27/25 History Allergies Allergy/AdvReac Type Severity Reaction Status Date / Time No Known Allergies Allergy Verified 02/28/25 12:58 Surgical - Exam Vital Signs Temp Pulse Resp BP Pulse Ox 98.7 F 91 18 126/84 100 02/28/25 13:05 02/28/25 13:05 02/28/25 13:05 02/28/25 13:05 02/28/25 13:05 Physical exam: General: Well-developed, well-nourished HEENT: Normocephalic, sclerae nonicteric Abdomen: Nontender, nondistended Extremities: No edema Neuro: Alert and oriented Assessment and Plan (1) Colon cancer screening Narrative/Plan: Will proceed with colonoscopy at this time. Current Visit: Yes Status: Acute Code(s): Z12.11 - ENCOUNTER FOR SCREENING FOR MALIGNANT NEOPLASM OF COLON SNOMED Code(s): 026753415
--- NOTE | 2025-02-28 14:07 | P.PCN ---
Date of Procedure: 02/28/25 Procedure(s) Performed: PREOPERATIVE DIAGNOSIS: Colon cancer screening POSTOPERATIVE DIAGNOSIS: Normal exam PROCEDURE: Colonoscopy ANESTHESIA: MAC SURGEON: Wes Delgado M.D. SPECIMENS: None ENDOSCOPIC PROCEDURE: The patient was placed on the endoscopy table in the left decubitus position. The Olympus colonoscope was inserted into the anus and passed under direct visualization to the base of the cecum. The appendiceal orifice was visualized. From that point the scope was slowly withdrawn inspecti ng all surfaces carefully. There were no neoplastic inflammatory or polypoid lesions throughout the cecum, ascending, transverse, descending, sigmoid and rectum. There was no visible diverticulosis noted. Digital rectal examination was normal. The patient was taken to the recovery room in stable condition per anesthesia guidelines. RECOMMENDATIONS: Resume diet. Repeat colonoscopy 10 years.
[2025-02-28 14:31] VITALS: BP 111/70; PULSE 70; RESP 16
== END 2025-02-28 14:43 | disposition home or self-care (01) ==
LOC: ORWHC2ENDO 12:35
PROVIDERS: ATTEND Surgery
DX: Z12.11 Encounter for screening for malignant neoplasm of colon (principal); M79.7 Fibromyalgia; G25.81 Restless legs syndrome; K59.00 Constipation, unspecified; Z79.899 Other long term (current) drug therapy; Z87.891 Personal history of nicotine dependence; Z85.3 Personal history of malignant neoplasm of breast
CPT/HCPCS: 45378; J2704

== ENCOUNTER 2025-06-02 21:00 | Emergency (ER) | payer BC ==
--- NOTE | 2025-06-02 22:05 | ED ---
Wound/Laceration HPI - General Chief Complaint: Wound/Laceration Stated Complaint: hand laceration Time Seen by Provider: 06/02/25 21:22 Source: patient, RN notes reviewed, old records reviewed Mode of arrival: ambulatory Limitations: no limitations - History of Present Illness Initial Comments: This 50-year-old female to the ER for evaluation of finger laceration. Patient presents with laceration to left index finger, broken glass in the sink mild bleeding from the site, patient states she has full range of motion although diminished due to pain. Patient cannot get bleeding to stop at home and come to the ER for evaluation, no blood thinners or other complaints -: hour(s) Extremity Location: Left: Hand Place: home Context: accidental Associated Symptoms: none Treatments Prior to Arrival: bandage - Related Data Home Medications Medication Instructions Recorded Confirmed traMADol HCL [Ultram] 50 mg PO DIRECTED PRN 03/13/20 02/27/25 Pramipexole [Mirapex] 0.125 mg PO HS PRN 02/27/25 02/27/25 Pregabalin [Lyrica] 100 mg PO BID 02/27/25 02/27/25 Venlafaxine HCl [Effexor XR] 75 mg PO DAILY 02/27/25 02/27/25 Venlafaxine HCl [Effexor XR] 150 mg PO DAILY 02/27/25 02/27/25 buPROPion HCL [buPROPion HCL SR] 150 mg PO DAILY 02/27/25 02/27/25 Allergies Allergy/AdvReac Type Severity Reaction Status Date / Time No Known Allergies Allergy Verified 06/02/25 21:09 Review of Systems ROS Statement: Those systems with pertinent positive or pertinent negative responses have been documented in the HPI. ROS Other: All systems not noted in ROS Statement are negative. 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 RLS History of Any Multi-Drug Resistant Organisms: None Reported Past Surgical History: Breast Surgery, Section, Hysterectomy, Orthopedic Surgery Additional Past Surgical History / Comment(s): ABD NERVE DIVISION ATTEMPT. 2019 foot surgery, LEFT ANKLE SURGERY (2019)RIGHT BREAST BX, LEFT BREAST BX (03/13/20 @ [facility]) COLONOSCOPY Past Anesthesia/Blood Transfusion Reactions: No Reported Reaction Past Psychological History: Anxiety, Depression Smoking Status: Former smoker Past Alcohol Use History: Occasional Past Drug Use History: None Reported - Past Family History Mother Family Medical History: No Reported History General Exam - General Exam Comments Initial Comments: Laceration left index finger, curvilinear, minimal bleeding Patient has full range of motion of the finger both at the PIP and DIP Limitations: no limitations General appearance: alert, in no apparent distress Head exam: Present: atraumatic, normocephalic, normal inspection Eye exam: Present: normal appearance, PERRL, EOMI. Absent: scleral icterus, conjunctival injection, periorbital swelling ENT exam: Present: normal exam, mucous membranes moist Neck exam: Present: normal inspection. Absent: tenderness, meningismus, lymphadenopathy Respiratory exam: Present: normal lung sounds bilaterally. Absent: respiratory distress, wheezes, rales, rhonchi, stridor Cardiovascular Exam: Present: regular rate, normal rhythm, normal heart sounds. Absent: systolic murmur, diastolic murmur, rubs, gallop, clicks GI/Abdominal exam: Present: soft, normal bowel sounds. Absent: distended, tenderness, guarding, rebound, rigid Extremities exam: Present: normal inspection, full ROM, normal capillary refill. Absent: tenderness, pedal edema, joint swelling, calf tenderness Back exam: Present: normal inspection Neurological exam: Present: alert, oriented X3, CN II-XII intact Psychiatric exam: Present: normal affect, normal mood Skin exam: Present: warm, dry, intact, normal color. Absent: rash Course Vital Signs 06/02/25 06/02/25 21:08 22:41 Temperature 98.6 F 98.4 F Pulse Rate 103 H 77 Respiratory 18 16 Rate Blood Pressure 119/86 116/78 O2 Sat by Pulse 98 99 Oximetry - Reevaluation(s) Reevaluation #1: 06/02/25 23:28 Medical records reviewed Reevaluation #2: 06/02/25 23:28 Patient symptoms improved Reevaluation #3: 06/02/25 23:28 Patient informed of results and questions answered Reevaluation #4: Was pt. sent in by a medical professional or institution (, PA, PIPELINES LABORER, urgent care, hospital, or retirement...) When possible be specific @ -no Did you speak to anyone other than the patient for history (EMS, parent, family, police, friend...)? What history was obtained from this source @ -no Did you review nursing and triage notes (agree or disagree)? Why? @ -agree Are old charts reviewed (outside hosp., previous admission, EMS record, old EKG, old radiological studies, urgent care reports/EKG's, retirement records)? Report findings @ -yes Differential Diagnosis (chest pain, altered mental status, abdominal pain women, abdominal pain men, vaginal bleeding, weakness, fever, dyspnea, syncope, headache, dizziness, GI bleed, back pain, seizure, CVA, palpatations, mental health, musculoskeletal)? @ -prior EKG interpreted by me (3pts min.). @ -yes X-rays interpreted by me (1pt min.). @ -yes negative for acute disease CT interpreted by me (1pt min.). @ -no U/S interpreted by me (1pt. min.). @ -no What testing was considered but not performed or refused? (CT, X-rays, U/S, labs)? Why? @ -none What meds were considered but not given or refused? Why? @ -none Did you discuss the management of the patient with other professionals (professionals i.e. , PA, PIPELINES LABORER, lab, RT, psych nurse, social services, clerk operator, teacher, psychological operations officer, nurse outreach case manager)? Give summary @ -no Was smoking cessation discussed for >3mins.? @ -no Was critical care preformed (if so, how long)? @ -no Were there social determinants of health that impacted care today? How? (Homelessness, low income, unemployed, alcoholism, drug addiction, transportation, low edu. Level, literacy, decrease access to med. care, [facility], rehab)? @ -none Was there de-escalation of care discussed even if they declined (Discuss DNR or withdrawal of care, Hospice)? DNR status @ -no What co-morbidities impacted this encounter? (DM, HTN, Smoking, COPD, CAD, Cancer, CVA, ARF, Chemo, Hep., AIDS, mental health diagnosis, sleep apnea, morbid obesity)? @ -none Was patient admitted / discharged? Hospital course, mention meds given and route, prescriptions, significant lab abnormalities, going to OR and other pertinent info. @ - Undiagnosed new problem with uncertain prognosis? @ -no Drug Therapy requiring intensive monitoring for toxicity (Heparin, Nitro, Insulin, Cardizem)? @ -no Were any procedures done? @ -no Diagnosis/symptom? @ - Acute, or Chronic, or Acute on Chronic? @ -Acute Uncomplicated (without systemic symptoms) or Complicated (systemic symptoms)? @ -Complicated Side effects of treatment? @ -no Exacerbation, Progression, or Severe Exacerbation? @ -exacerbation Poses a threat to life or bodily function? How? (Chest pain, [place], [place], pneumonia, PE, COPD, DKA, ARF, appy, cholecystitis, CVA, Diverticulitis, Homicidal, Suic idal, threat to staff... and all critical care pts) @ -yes Medical Decision Making - Medical Decision Making 50 female to ER for finger laceration, laceration repaired here in the ER patient placed in a splint, given antibiotics for 2 days and can be discharged home Disposition Clinical Impression: Laceration, Laceration of left index finger Disposition: HOME SELF-CARE Condition: Good Instructions (If sedation given, give patient instructions): Laceration (ED), Finger Laceration (ED), Skin Adhesive Care (ED) Is patient prescribed a controlled substance at d/c from ED?: No Referrals: Susan Moscoso MD [Primary Care Provider] - 1-2 days Akua Donald [Doctor of Osteopathic Medicine] - 1-2 days Time of Disposition: 22:30
[2025-06-02] MEDS: CEPHALEXIN 500 MG CAP PO STA (22:39)
[2025-06-02] MEDS: CEPHALEXIN 500MG STARTER PACK 4 CAP BTL PO STA (22:39)
[2025-06-02] MEDS: TOPICAL SKIN ADHESIVE 1 EACH AMP TOPICAL STA (22:39)
[2025-06-02 22:48] VITALS: BP 116/78; PULSE 77; RESP 16; TEMP 98.4
== END 2025-06-02 23:32 | disposition home or self-care (01) ==
LOC: EC 21:00
DX: S61.211A Laceration without foreign body of left index finger without damage to nail, initial encounter (principal); Z87.891 Personal history of nicotine dependence; W25.XXXA Contact with sharp glass, initial encounter
CPT/HCPCS: 12001; 99282